=== PATIENT | female | born 1945 | race Caucasian/White ===

== ENCOUNTER 2017-02-03 08:29 | Emergency (ER) | payer MEDICARE, MEDICAID ==
[~2017-02-03] VITALS: Ht 154.9 cm; Wt 45.4 kg
[~2017-02-03 08:29] MED LIST: LACT10SO6 PO
--- NOTE | 2017-02-03 08:35 | NUR ---
BIB RA FROM HOME FOR N/V SINCE MORNING, ABLE TO AMBULATE TO BED, PATIENT IS VERBALLY RESPONSIVE, A/O X 4, PLACED ON MONITOR, WILL CONTINUE TO MONITOR CLOSELY.
[2017-02-03] MEDS ORDERED: ONDANSETRON HCL/PF 4 MG/2 ML VIAL ONE (08:40)
[2017-02-03] MEDS ORDERED: IV NS 0.9% 1,000 ML ONE (08:41)
[2017-02-03 08:53] LABS: EOSINOPHILS % (AUTO) 0.3 % (0.0-6.0); HEMATOCRIT 40 % (33-45); HEMOGLOBIN 13.2 g/dL (11.5-14.8); LYMPHOCYTES # (AUTO) 0.6 /CMM (0.8-4.8); LYMPHOCYTES % (AUTO) 8.8 % (20.0-44.0); MEAN CORPUSCULAR HEMOGLOBIN 30 PG (26.0-33.0); MEAN CORPUSCULAR HGB CONC 33 g/dl (31.0-36.0); MEAN CORPUSCULAR VOLUME 90 fL (82-100); MONOCYTES # (AUTO) 0.1 /CMM (0.1-1.30); MONOCYTES % (AUTO) 1.5 % (2.0-12.0); NEUTROPHILS # (AUTO) 6.5 /CMM (1.8-8.9); NEUTROPHILS % (AUTO) 89.4 % (43.0-81.0); PLATELET COUNT (AUTO) 192 /CMM (150-450); RDW COEFFICIENT OF VARIATION 13.6 (11.5-15.0); RED BLOOD CELL COUNT(AUTO) 4.39 MIL/uL (4.0-5.2); WHITE BLOOD COUNT (AUTO) 7.3 K/uL (4.3-11.0)
[2017-02-03] MEDS ORDERED: ONDANSETRON HCL/PF 4 MG/2 ML VIAL IVP ONE (09:00)
[2017-02-03] MEDS ORDERED: IV NS 0.9% 1,000 ML BAG IV ONE (09:00)
[2017-02-03 09:03] LABS: CALCIUM, SERUM 9.2 mg/dL (8.5-10.1); CARBON DIOXIDE 30 mmol/L (21-32); CHLORIDE 102 mmol/L (98-107); CREATININE 0.7 mg/dL (0.6-1.3); GLUCOSE 173 mg/dL (74-106); POTASSIUM 3.6 mmol/L (3.5-5.1); SODIUM SERUM 140 mmol/L (136-145); UREA NITROGEN, BLOOD 12 mg/dL (7-18)
[2017-02-03 09:08] LABS: ALANINE AMINOTRANSFERASE 24 U/L (12-78); ALKALINE PHOSPHATASE 46 U/L (46-116); ASPARTATE AMINOTRANSFERASE 26 U/L (15-37); BILIRUBIN,DIRECT 0.1 mg/dL (0.0-0.2); BILIRUBIN,TOTAL 0.4 mg/dL (0.2-1.0); LIPASE 135 U/L (73-393); TOTAL PROTEIN, SERUM 7.9 g/dL (6.4-8.2)
[2017-02-03 09:10] LABS: TROPONIN I < 0.017 ng/mL (0.00-0.056)
[2017-02-03] MEDS ORDERED: ALPR0.5T8 PO (09:32)
[2017-02-03] MEDS ORDERED: ESOM40CA PO (09:32)
[2017-02-03] MEDS ORDERED: METO25TA3 PO (09:32)
[2017-02-03] MEDS ORDERED: LISI-603 PO (09:32)
[2017-02-03] MEDS ORDERED: ATOR40TA PO (09:32)
[2017-02-03] MEDS ORDERED: OXYC30TA2 PO (09:32)
[2017-02-03] MEDS ORDERED: ALEN70TA45 PO (09:32)
[2017-02-03] MEDS ORDERED: MONT10TA22 PO (09:32)
--- NOTE | 2017-02-03 10:45 | NUR ---
RN NOTES RECEIVED PT FROM ER IN ROOM 104, A/Ox4, PORTUGUESE SPEAKING , RESPIRATION EVEN AND UNLABORED, ON RA , NO SOB NOTED, ON TELE HR SR IN 80'S R AC IV SITE G 20 CDI, SUPPORTIVE FAMILY AT THE BEDSIDE, NO SKIN ISSUES NOTED, SR UP x3, CALL LIGHT WITHIN EASY REACH , CONTINUE TO MONITOR PT CLOSELY AND NOTIFY MD OF ANY SIGNIFICANT CHANGES .
--- NOTE | 2017-02-03 11:23 | NUR ---
RN NOTES PT TAKEN BACK TO ER , PT IS NOT ADMITTED YET .
[2017-02-03 12:38] LABS: APPEARANCE,URINE Clear (CLEAR); BILIRUBIN,URINE Negative (NEGATIVE); BLOOD, URINE Trace-lysed Ery/uL (NEGATIVE); COLOR,URINE Yellow (YELLOW); KETONES,URINE Negative (NEGATIVE); LEUKOCYTE ESTERASE ,URINE Large (NEGATIVE); NITRITE, URINE Negative (NEGATIVE); PROTEIN,URINE Negative (NEGATIVE); UGLUCOSE Negative (NEGATIVE); UROBILINOGEN,URINE 0.2 EU/dL (0.2)
[2017-02-03 12:52] LABS: BACTERIA,URINE Few /HPF (None Seen); SQUAMOUS EPITHELIAL CELL,UR Few /HPF (None Seen)
[2017-02-03 13:22] VITALS: BP 135/89
--- NOTE | 2017-02-03 13:22 | NUR ---
Patient discharged to home in stable condition. Written and verbal after care instructions given. Patient verbalizes understanding of instruction. IV removed. Catheter intact and site benign. Pressure and 4x4 applied to site. No bleeding noted. nad noted upon discharge, with family
== END 2017-02-03 10:50 | disposition other institution (70) ==
LOC: ER 08:32 → UNDOADMIN 10:40 → TELE1 10:40 → TRANSITION 11:51
DX: N39.0 Urinary tract infection, site not specified (principal); I10 Essential (primary) hypertension; K21.9 Gastro-esophageal reflux disease without esophagitis; G47.00 Insomnia, unspecified; Z85.038 Personal history of other malignant neoplasm of large intestine; Z98.890 Other specified postprocedural states
CPT/HCPCS: 36415; 71010; 74176; 80048; 80076; 81001; 83690; 84484; 85025; 93005; 96361; 96374; 99285; A4606; J2405; J7030; 81000-TC; Z7610

== ENCOUNTER 2021-10-16 11:55 | Inpatient (IN) | payer MEDICARE, OTHER ==
[~2021-10-16] VITALS: Ht 147.3 cm; Wt 46.3 kg
[~2021-10-16 11:55] MED LIST changes: +ALEN70TA80 PO; +ALPR0.5T8 PO; +ATOR40TA PO; +ENOXAPARIN SODIUM 40 MG/0.4 ML DISP.SYRIN SQ SCH; +ESOM40CA PO; -LACT10SO6 PO; +LISI20TA30 PO; +METO25TA3 PO; +MONT10TA22 PO; +OXYC30TA2 PO
--- NOTE | 2021-10-16 11:55 | NUR ---
PT BIBRA 38 FROM HOME C/O SOB/ LOW O2 SATURATION @85% ON RA. PT IS AAOX3 GREEK SPEAKING ONLY, NOTED MILD RESPIRATORY DISTRESS, HOOKED TO O2 VIA NNON RB AT 15LPM, HOOKED TO FIRE TRUCK DRIVER, KEPT RESTED AND COMFORTABLE. WILL CONTINUE TO MONITOR.
[2021-10-16] MEDS ORDERED: FLUT1DIS5 INH (12:13)
[2021-10-16] MEDS ORDERED: RANO500T6 PO (12:13)
[2021-10-16] MEDS ORDERED: FURO40TA5 PO (12:13)
[2021-10-16] MEDS ORDERED: GABA300C PO (12:13)
[2021-10-16] MEDS ORDERED: LOSA25TA27 PO (12:13)
[2021-10-16] MEDS ORDERED: ESCI10TA PO (12:13)
[2021-10-16] MEDS ORDERED: EZET10TA15 PO (12:13)
[2021-10-16] MEDS ORDERED: ASPI-1169 PO (12:13)
--- NOTE | 2021-10-16 12:30 | NUR ---
MOVE SHEET SUBMITTED AND CALLED FOR TELE BED.
[2021-10-16 13:15] LABS: BASOPHILS % (AUTO) 0.2 % (0.0-2.0); EOSINOPHILS % (AUTO) 1.1 % (0.0-6.0); HEMATOCRIT 36 % (33-45); HEMOGLOBIN 12.3 g/dL (11.5-14.8); LYMPHOCYTES # (AUTO) 0.4 K/uL (0.8-4.8); LYMPHOCYTES % (AUTO) 6.6 % (20.0-44.0); MEAN CORPUSCULAR HGB CONC 34 g/dl (31.0-36.0); MEAN CORPUSCULAR VOLUME 96 fL (82-100); MONOCYTES # (AUTO) 0.3 K/uL (0.1-1.30); MONOCYTES % (AUTO) 4.4 % (2.0-12.0); NEUTROPHILS # (AUTO) 5.5 K/uL (1.8-8.9); NEUTROPHILS % (AUTO) 87.7 % (43.0-81.0); PLATELET COUNT (AUTO) 238 K/uL (150-450); RED BLOOD CELL COUNT(AUTO) 3.73 MIL/uL (4.0-5.2); WHITE BLOOD COUNT (AUTO) 6.3 K/uL (4.3-11.0)
[2021-10-16 13:26] LABS: CALCIUM, SERUM 9.5 mg/dL (8.5-10.1); CREATININE 0.7 mg/dL (0.6-1.3)
[2021-10-16 13:31] LABS: POTASSIUM 2.5 mmol/L (3.5-5.1)
[2021-10-16 13:36] LABS: D-DIMER > 35.20 mg/L(FEU (0.17-0.50)
[2021-10-16] MEDS ORDERED: POTASSIUM CHLORIDE 20 MEQ TAB.PRT.SR PO ONE ×2 (13:36→14:00)
[2021-10-16 13:38] LABS: ALBUMIN 2.4 g/dL (3.4-5.0); BILIRUBIN,TOTAL 0.6 mg/dL (0.2-1.0); TOTAL PROTEIN, SERUM 7.9 g/dL (6.4-8.2)
[2021-10-16 13:46] LABS: BILIRUBIN,URINE NEGATIVE (NEGATIVE); COLOR,URINE YELLOW (YELLOW); LEUKOCYTE ESTERASE ,URINE NEGATIVE (NEGATIVE); NITRITE, URINE NEGATIVE (NEGATIVE); PROTEIN,URINE 100 mg/dl (NEGATIVE); UGLUCOSE NEGATIVE (NEGATIVE); UROBILINOGEN,URINE 0.2 EU/dL (0.2)
--- NOTE | 2021-10-16 14:05 | NUR ---
jose daughter called and informed pt has not been eating well and had dark color diarrhea.
[2021-10-16 14:07] LABS: BACTERIA,URINE None seen /HPF (None Seen); MUCUS,URINE Few /LPF (None Seen); SQUAMOUS EPITHELIAL CELL,UR Few /HPF (None Seen)
--- NOTE | 2021-10-16 14:24 | NUR ---
DR. TSANG CARDIOLOGY SPEAKING WITH DR. TATUM.
--- NOTE | 2021-10-16 14:28 | NUR ---
[facility] CALLED [facility] [employer] PAGED.
[2021-10-16] MEDS ORDERED: ASPIRIN 81 MG TAB.CHEW PO ONE (14:30)
[2021-10-16] MEDS ORDERED: ENOXAPARIN SODIUM 40 MG/0.4 ML DISP.SYRIN SQ ONE (14:30)
[2021-10-16] MEDS ORDERED: ENOXAPARIN SODIUM 60 MG/0.6 ML DISP.SYRIN SQ ONE (14:37)
[2021-10-16] MEDS ORDERED: ASPIRIN 81 MG TAB.CHEW ONE (14:37)
[2021-10-16 14:40] LABS: C-REACTIVE PROTEIN 38.1 mg/dL (0.0-0.9)
[2021-10-16] MEDS ORDERED: CEFTRIAXONE 1GM BAG (ER ONLY) 50 ML IV ONE (14:44)
--- NOTE | 2021-10-16 14:45 | NUR ---
pt is restless and agitated,removing her mask and nasal canula, dr mantilla made aware.
[2021-10-16] MEDS ORDERED: HALOPERIDOL LACTATE INJ 5 MG/ML VIAL ONE (14:50)
--- NOTE | 2021-10-16 14:58 | NUR ---
confirmed dose and route of haldol with dr mantilla.
--- NOTE | 2021-10-16 14:59 | NUR ---
[facility] BED 111-1
[2021-10-16] MEDS ORDERED: CEFTRIAXONE 1 G in IV D5W 50 ML IV ONE (15:00)
[2021-10-16] MEDS ORDERED: AZITHROMYCIN 500 MG in IV D5W 250 ML IV ONE (15:00)
[2021-10-16] MEDS ORDERED: HALOPERIDOL LACTATE INJ 5 MG/ML VIAL IV ONE (15:00)
[2021-10-16] MEDS ORDERED: IV NS 0.9% 250 ML IV ONE (15:07)
[2021-10-16] MEDS ORDERED: IOHEXOL-350 100 ML VIAL IV ONE (15:07)
[2021-10-16] MEDS ORDERED: CT SWABBABLE VALVE TRANS SET 1 EA INFUS.SET MC ONE (15:08)
[2021-10-16 15:20] VITALS: BP 113/43
--- NOTE | 2021-10-16 15:30 | NUR ---
pt intubated, see intubation documentation.
[2021-10-16] MEDS ORDERED: PROPOFOL 100 ML ONE (15:56)
--- NOTE | 2021-10-16 16:32 | NUR ---
dr mantilla back at bedside for chest tube insertion.
--- NOTE | 2021-10-16 17:04 | NUR ---
CALLED [phone] DR. LOUISE THORACIC SPEAKING WITH DR. TATUM.
--- NOTE | 2021-10-16 17:29 | NUR ---
UPDATED ROOM: 252 ICU
--- NOTE | 2021-10-16 18:15 | NUR ---
pt coded at 1815.see code blue documentation.
[2021-10-16] MEDS ORDERED: MAGNESIUM HYDROXIDE 30 ML UDC PO PRN (19:00)
[2021-10-16] MEDS ORDERED: Z GUARD REMEDY 4 OZ OINT TP PRN (19:00)
[2021-10-16] MEDS ORDERED: ZOLPIDEM TARTRATE 5 MG TABLET PO PRN (19:00)
[2021-10-16] MEDS ORDERED: ACETAMINOPHEN 325 MG TABLET PO PRN (19:00)
[2021-10-16] MEDS ORDERED: ONDANSETRON HCL/PF 4 MG/2 ML VIAL IVP PRN (19:00)
--- NOTE | 2021-10-16 19:10 | NUR ---
RT Received pt in ER on 15 LPM via NRB. No changes per MD Sorto post ABG on NRB. Called by ER dept to patient room because of low Sp02 due to pt consistently removing oxygen. Communicated with pt the importance of keeping oxygen on. Pt continued to be uncooperative. Pt placed on HFNC 60 LPM/100% Fi02 + 15 LPM NRB per MD Sorto due to low Sp02. Pt continued being restless and removing oxygen device. @1545 Pt was intubated with 7.0 ETT by MD Sorto with settings as noted. Pt receiving tidal volumes but was hypoxic. MD Sorto placed chest tube post X ray scan but pt remained hypoxic. @1817 pt coded and compressions began.
--- NOTE | 2021-10-16 19:20 | NUR ---
SPOKE TO POURER BUGGY LADLE GRACE. REQUESTING FOR ATTENDING PHYSICIAN NAME AND IF PRIMARY MD WILL SIGN CERTIFICATE. SPOKE TO THE FAMILY TO ASK THE PRIMARY PHYSICIAN BUT DIDN'T WANT TO COMMUNICATE WITH US. STATES "WE CANNOT DEAL WITH THIS RIGHT NOW".
--- NOTE | 2021-10-16 19:30 | NUR ---
[facility] CASE # [id number]
--- NOTE | 2021-10-16 20:06 | NUR ---
SPOKE WITH DAUGHTER DHRUV AND MADE HER AWARE THAT THE PATIENT IS IN ER BED #5. DAUGHTER MADE AWARE OF HOSPITAL`S BODY VIEWING POLICY AND THAT THEY CAN VISIT THE PATIENT BEFORE THE PATIENT IS TAKEN TO [facility] [place]. ALSO, MADE HER AWARE THAT THE PATIENT WILL BE TAKEN TO [facility]. DAUGHTER MADE AWARE THAT ONCE MORTUARY SERVICES ARE ARRANGED NURSING SUP SHOULD BE CONTACT BY THE FAMILY TO INFORM ABOUT THE ARRANGMENTS. DAUGHTER VERBALIZED UNDERSTANDING.
[2021-10-17] MEDS ORDERED: SODIUM BICARBONATE SYR 50 MEQ/50 ML DISP.SYRIN IV ONE (04:09)
[2021-10-17] MEDS ORDERED: EPINEPHRINE (1:10,000) SYRINGE 1 MG/10 ML DISP.SYRIN IVP ONE (04:09)
[2021-10-17] MEDS ORDERED: ETOMIDATE 2 MG/ML VIAL IV ONE (04:09)
[2021-10-17 20:46] LABS: ABG BASE EXCESS 5.1 mmol/L; ABG PCO2 36.9 mmHg (35.0-45.0); ABG PH 7.503 (7.350-7.450); ABG PO2 76.2 mmHg (75.0-100.0); COHb 0.3 % (0.5-1.5); MetHb 0.2 % (0.0-1.5); O2Hb 94.9 % (94.0-97.0); SITE, ABG Right Radial
== END 2021-10-16 18:22 | DRG 208 ==
LOC: ER 11:58 → TELE-TD 15:07 → UNDODISIN 10-17 04:10
PROVIDERS: ADMIT Nurse Practitioner Acute Care; ATTEND Nurse Practitioner Acute Care
PROC: 5A1935Z Respiratory Ventilation, Less than 24 Consecutive Hours (ICD-10-PCS; principal; 2021-10-16)
PROC: 0BH17EZ Insertion of Endotracheal Airway into Trachea, Via Natural or Artificial Opening (ICD-10-PCS; 2021-10-16)
PROC: 5A2204Z Restoration of Cardiac Rhythm, Single (ICD-10-PCS; 2021-10-16)
PROC: 02HV33Z Insertion of Infusion Device into Superior Vena Cava, Percutaneous Approach (ICD-10-PCS; 2021-10-16)
PROC: B548ZZA Ultrasonography of Superior Vena Cava, Guidance (ICD-10-PCS; 2021-10-16)
DX: U07.1 COVID-19 (principal); J12.82 Pneumonia due to coronavirus disease 2019; J96.01 Acute respiratory failure with hypoxia; J44.0 Chronic obstructive pulmonary disease with (acute) lower respiratory infection; I11.0 Hypertensive heart disease with heart failure; E78.5 Hyperlipidemia, unspecified; Z99.81 Dependence on supplemental oxygen; Z85.038 Personal history of other malignant neoplasm of large intestine; Z90.49 Acquired absence of other specified parts of digestive tract; Z98.890 Other specified postprocedural states; I50.9 Heart failure, unspecified; G47.00 Insomnia, unspecified; Z79.82 Long term (current) use of aspirin; Z79.83 Long term (current) use of bisphosphonates; Z79.899 Other long term (current) drug therapy; J98.2 Interstitial emphysema; Z79.51 Long term (current) use of inhaled steroids
CPT/HCPCS: 32551; 36415; 36600; 71045-TC; 80053-TC; 81001; 82550-TC; 82803-TC; 83605-TC; 83615-TC; 83880; 84484-TC; 85025-TC; 85378-TC; 85730-TC; 86140-TC; 87040-TC; 87081-TC; 94002-TC; 94799-TC; C9803; G0378; J0171; J0456; J0696; J1630; J1650; J3490; J7030; J7050; J7060; Q9967; U0003